=== PATIENT | male | born 1950 | race Caucasian/White ===

== ENCOUNTER → 2022-12-11 11:31 | Outpatient (CLI) | payer OTHER, SELFPAY ==
[2022-12-11 13:57] LABS: COVID19 -Nasal RAPID Negative (Negative)
== END ==
PROVIDERS: PCP Family Medicine; Visit Provider Surgery
DX: Z01.812 Encounter for preprocedural laboratory examination (principal); Z20.822 Contact with and (suspected) exposure to COVID-19
CPT/HCPCS: 87635

== ENCOUNTER → 2022-12-11 11:41 | Outpatient (CLI) | payer OTHER, SELFPAY ==
[2022-12-11 12:22] LABS: Add Manual Diff / Slide Review NO; Basophils Absolute Auto 100 /uL (0-100); Basophils Percent Auto 0.6 % (0-2); Eosinophils Absolute Auto 100 /uL (0-450); Eosinophils Percent Auto 0.9 % (2-4); Hematocrit 46.8 % (41-53); Lymphocytes Absolute Auto 2800 /uL (1100-4500); Lymphocytes Percent Auto 33.9 % (25-40); Mean Corpuscular HGB Conc 34.2 % (30-36); Mean Corpuscular Hemoglobin 30.3 PG (26-34); Mean Corpuscular Volume 88.7 fL (80-100); Monocytes Absolute Auto 500 /uL (0-900); Monocytes Percent Auto 5.8 % (3-14); Neutrophils Absolute Auto 4900 /uL (1500-7000); Neutrophils Percent Auto 58.8 % (50-75); Platelet Count 216 X10^3/uL (150-400); Red Blood Cell Count 5.28 X10^6/uL (4.5-5.9); White Blood Cell Count 8.3 X10^3/uL (4.5-11.0)
[2022-12-11 12:32] LABS: Alanine Aminotransferase 16 IU/L (<50); Albumin 4.6 g/dL (3.5-5.0); Albumin Globulin Ratio 1.4 (1.0-2.8); Alkaline Phosphatase 73 U/L (38-126); Aspartate Aminotransferase 25 IU/L (17-59); BUN Creatinine Ratio 24.5 (6-22); Bilirubin Total 0.7 mg/dL (0.2-1.3); Blood Urea Nitrogen 26 mg/dL (9-20); Calcium 9.5 mg/dL (8.4-10.2); Carbon Dioxide 28 mmol/L (22-32); Chloride 105 mmol/L (98-107); Estimated Glomerular Filt Rate > 60 mL/min (>60); Globulin 3.3 g/dL (1.7-4.1); Glucose 116 mg/dL (80-110); HEMOLYSIS < 15 (0-50); Potassium 4.5 mmol/L (3.4-5.1); Sodium 143 mmol/L (137-145); Total Protein 7.9 g/dL (6.3-8.2)
== END ==
PROVIDERS: PCP Family Medicine; Referring Provider Surgery; Visit Provider Surgery
DX: Z01.812 Encounter for preprocedural laboratory examination (principal); K80.20 Calculus of gallbladder without cholecystitis without obstruction; Z20.822 Contact with and (suspected) exposure to COVID-19
CPT/HCPCS: 36415; 80053; 85025; 87635; C9803

== ENCOUNTER 2022-12-12 06:38 | Day surgery (SDC) | payer OTHER, SELFPAY ==
[2022-12-07 10:42] VITALS: BMI 24.3
[2022-12-12] VITALS (9 sets, daily range): BP systolic 156–165; BP diastolic 80–95; PULSE 77–97; RESP 10–18; TEMP 36.2–36.3; O2SAT 94–100; BMI 24.9
--- NOTE | 2022-12-12 | PATH_ITS ---
[facility] Accession Number: [id number] No. of containers..01 Tissue . 01 Material submitted: . gallbladder - GALLBLADDER . 01 Diagnosis: Gallbladder, Cholecystectomy: Cholelithiasis with chronic cholecystitis, erosions, metaplasias and reactive atypia. Negative for dysplasia or malignancy. Cystic duct margin negative for epithelial atypia. MRV 12/15/2022 1517 Local . 01 Comment: As part of routine clinical quality assurance associate, Dr. Bazzi has reviewed this case and agrees there is no evidence of dysplasia or malignancy. . . 01 Electronically signed: . Francisco Person MD, PhD, Pathologist NPI- [id number] . 01 Gross description: . The specimen is received in formalin labeled with the patient's name, , and gallbladder, and consists of a previously disrupted gallbladder measuring 13.2 x 5.2 x 3.0 cm. The serosa is corey, smooth and congested and hepatic surface is roughened and significant for a full thickness defect measuring 3.5 cm in greatest dimension. The cystic duct is received closed with a clamp, is inked blue, and no pericystic lymph node is identified. The lumen contains no identifiable bile and three corey to brown cylindrical calculi are found within the container measuring up to 2.7 cm in greatest dimension. The mucosa is corey, trabecular, and has an area of nodularity measuring 6.9 x 3.5 cm, and the serosa and hepatic surface adjacent to this area is inked black. Also within this area are corey, flat plaques possibly consistent with cholesterol deposits. No additional lesions are identified and the awan average 0.2 cm thick. Metal Reed [employer]er sections to include the cystic duct margin, full thickness sections, and nodular area are submitted in cassettes A1-A2 (nodular area in A2). ([id number]) Additional sections are submitted in cassettes A3-A9. ([id number]) /RAINER 12/14/2022 1323 Local . 01 Pathologist provided ICD-10: K80.60 . 01 CPT . 269526 Specimen Comment: A courtesy copy of this report has been sent to [phone] Performed at: 01 [facility] [address] [place] [address], [place], [place] [id number] MD Burak Licea MD Phone: [phone]
[2022-12-12] MEDS: LACTATED RINGERS 1,000 ML 42 ML IV ×2 (07:18→09:20)
--- NOTE | 2022-12-12 07:56 | PM.PREOP ---
Pre-operative Note COVID-19 COVID-19 status: Negative Result date/Date tested (Pos, Neg/Pending): 12/11/22 Interval Note History & Physical reviewed/Exam performed by Physician: Yes Changes to H&P: Yes H&P completed within 30 days and has changed as indicated here:: All labs were normal so we will perform a cholangiogram only if there is abnormal anatomy ASA Class (for procedural sedation): II
[2022-12-12] MEDS: CEFAZOLIN 2 GM/100 ML PREMIX 100 ML IV (08:18)
--- NOTE | 2022-12-12 08:47 | SUR.OPER ---
Supine on padded OR bed, head on pillow, safety belt at thigh Bilateral arms secured on padded arm board <90 degrees abduction. Legs uncrossed. Padded footboard in place. Tape over blanket to secure lower legs. Gel pad under bilateral heels.
[2022-12-12] MEDS: BUPIVACAINE 0.5% W/ EPI (PF) 30 ML VIAL INJ (08:51)
--- NOTE | 2022-12-12 10:07 | P.OP_ITS ---
Operative Date/Time/Diagnoses Date of procedure: 12/12/22 Time of procedure: 10:07 Pre-op diagnosis: Gallstones Post-op diagnosis: same Procedure & Clinicians Procedure: Laparoscopic cholecystectomy Same procedure as scheduled: Yes Surgeon: Prashant Smith Anesthesia Type: General Operative Notes Procedure in detail: The patient was given preoperative antibiotic. The patient was brought to the operating room, placed on the table in the supine position. General endo tracheal anesthesia was induced. The abdomen was prepped and draped. A time- out was performed. We made a 1 cm infraumbilical incision. We dissected down to the base of the umbilical stalk using cautery. We grasped the umbilical stalk with a Leida clamp to elevate the abdominal wall. We scored the fascia in the midline with cautery across 1 cm. We pierced the peritoneum with a Peon clamp. The Fletcher port was placed and the abdomen was insufflated to 15 mmHg. A 5 mm 30 degree laparoscopic was inserted. There was no evidence of any injury from the entry. Next, we placed 5 mm ports in the subxiphoid position and right upper quadrant at the midclavicular line and anterior axillary line. Patient was then positioned in reverse Trendelenburg and the table was tilted to the left. The gallbladder was notably enlarged and tense and was decompressed with a large bore needle. The gallbladder contents were clear suggesting hydrops. Once the gallbladder was sufficiently decompressed we were then able to grab the gallbladder at the dome and retracted it cephalad. We then dissected the cystic structures with a combination of hook cautery and blunt dissection. We obtained a critical view. We placed clips on the cystic duct and 2 branches of the artery and divided the cystic duct and branches of the artery sharply between the clips. The gallbladder was then dissected off the liver and placed in a specimen retrieval bag. We irrigated the right upper quadrant and all the aspirate returned clear. Complete hemostasis was observed. We then removed the 5 mm ports under direct vision we removed the Fletcher port. Due to the large size of the stones we had to extend the fascial incision to about 3 cm to extract the specimen. We then injected some local into the fascia and closed the fascia with 2 interrupted 0 Vicryl sutures and 3 0 Ethibond sutures. The skin incisions were closed with 4-0 Monocryl and Steri-Strips were applied. Band-Aids were applied over the Steri-Strips. EBL: 30 mL Specimen: Gallbladder Post-operative Condition: stable Disposition: PACU
[2022-12-12] MEDS: ONDANSETRON 4 MG/2 ML INJ IV (11:29)
--- NOTE | 2022-12-12 12:02 | SUR.PHASEII ---
1145: Pt A&Ox4, denies any distressed and ready to discharge home. Discharge instructions reviewed with patient and spouse with time allowed for questions. Pt voided, IV DC'd intact, dressing C/D/I, abdomen soft. Pt left unit via w/c to ER entrance and transferred independently to vehicle. Left pt in care of spouse.
== END 2022-12-12 11:50 | disposition home or self-care (01) ==
PROVIDERS: PCP Family Medicine; Referring Provider Surgery; Visit Provider Surgery
PROC: 0FT44ZZ Resection of Gallbladder, Percutaneous Endoscopic Approach (ICD-10-PCS; CPT 47562; principal; 2022-12-12 07:45)
DX: K80.10 Calculus of gallbladder with chronic cholecystitis without obstruction (principal); I10 Essential (primary) hypertension; E11.9 Type 2 diabetes mellitus without complications; Z79.84 Long term (current) use of oral hypoglycemic drugs
CPT/HCPCS: 47562; J0330; J0690; J1170; J1885; J2405; J2704; J3010

== ENCOUNTER 2025-09-29 13:52 | Day surgery (SDC) | payer MEDICARE, SELFPAY ==
--- NOTE | 2025-09-29 | PATH_ITS ---
[facility] Accession Number: [id number] No. of containers..02 Tissue . 01 Material submitted: . PART A: stomach - ANTRUM PART B: esophagus - ESOPHAGUS . 01 Diagnosis: Part A: ANTRUM: Gastric mucosa with mild chronic inflammation. No Helicobacter organisms identified. No intestinal metaplasia, dysplasia, or malignancy identified. . Part B: ESOPHAGUS: Squamocolumnar junctional mucosa with mild chronic inflammation and focal goblet cell metaplasia. No dysplasia identified. See comment. . 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 Correlation with the endoscopic appearance is recommended for further evaluation. [facility] 10/08/20251755 Local . 01 Electronically signed: . Burak Licea MD, Pathologist NPI- [id number] . 01 Gross description: . A. Received in formalin with two patient identifiers, and antrum are two, 0.2-0.3 cm, corey tissue fragments, entirely submitted in A1. . B. Received in formalin with two patient identifiers, and esophagus are four, 0.2-0.3 cm, corey tissue fragments, entirely submitted in B1. ([id number]) /MRV 10/08/20251755 Local . 01 Microscopic: . Part A: ANTRUM: An immunohistochemical stain was performed to evaluate for Helicobacter organisms and is negative. The control stains appropriately. * This test was developed and the performance characteristics were validated by [facility]. It has not been cleared or approved by the Food and Drug Administration. . 01 Pathologist provided ICD-10: K22.70, K29.50 . 01 CPT . 054436, 506427, E59408 Specimen Comment: A courtesy copy of this report has been sent to [facility] Performed at: 01 [facility] [place] [address] [address], [place], [place] [id number] MD Burak Licea MD Phone: [phone]
--- NOTE | 2025-09-29 06:28 | PM.HP.IH.1 ---
History of Present Illness History of Present Illness Date Patient Seen: 09/29/25 Chief complaint: SDC Narrative: Patient presents for EGD today. [facility] Medical History Anesthesia complication BCC (basal cell carcinoma) COVID-19 virus infection (04/2022) GERD (gastroesophageal reflux disease) Hypertension Neuropathy Renal cyst Renal cysts, acquired, bilateral Type 2 diabetes mellitus Surgical History History of herniorrhaphy History of surgery Hx of tonsillectomy Social History household members: spouse alcohol intake: current Meds Home Medications and Allergies Home Medications ?Medication ?Instructions ?Recorded ?Confirmed ?Type metformin 500 mg tablet 500 mg PO BID 11/22/22 08/24/25 History aspirin 81 mg tablet 81 mg PO DAILY 08/24/25 08/24/25 History flash glucose sensor (FreeStyle #1 ea 08/24/25 08/24/25 History Nova 14 Day Sensor kit) rosuvastatin 10 mg tablet 10 mg PO ONCE PM 08/24/25 08/24/25 History sodium,potassium,mag sulfates 17.5 See Rx Instructions PO .COMPLEX 09/15/25 Rx gram-3.13 gram-1.6 gram oral soln #354 mL (Suprep Bowel Prep Kit) Allergies Allergy/AdvReac Type Severity Reaction Status Date / Time No Known Drug Allergies Allergy Verified 08/24/25 10:27 Exam Narrative Exam Narrative: Const General: healthy appearing, comfortable and no acute distress Orientation: alert and oriented x3 HENMT Ears: hearing grossly normal bilaterally Eyes Visual Leung: normal visual leung by confrontation Conjunctivae: conjunctivae normal Sclera: sclerae normal EOM: EOM intact bilaterally Resp Effort & Inspection: normal respiratory effort and able to speak in complete sentences Cardio Rate: regular rate GI Palpation: soft (NT) Extrem General: no pedal edema and no calf tenderness Assessment & Plan Assessment and plan (1) Chronic hiccoughs: Status: Acute Plan Plan EGD with biopsy as next step. If no contributing factors found at EGD, consider structural imaging such as MRI brain, CT CAP. Consider medication ( baclofen, gabapentin, reglan, chlorpromazine, etc) management if nothing structural found. The risks, benefits and options regarding the procedure were explained to the patient in detail. Risk discussion included but not limited to: bleeding, perforation, missed lesion. The patient was encouraged to ask questions and they were answered to their satisfaction. The patient understands and is agreeable to proceed. Time-Based Coding :: [TOTAL MINUTES] spent with patient and on the chart (including review of chart, obtaining history, exam, reviewing outside data, placing orders, documenting exam and treatment plan, and counseling patient) on [DATE]. [employer] Position Clerk Document charge(s): Yes Charge Codes Inpatient/observation care including admit and discharge same day: [id number]
[2025-09-29 14:12] VITALS: BP 158/96; PULSE 99; RESP 18; TEMP 36.4; O2SAT 98
[2025-09-29] MEDS: LACTATED RINGERS 1,000 ML 42 ML IV (14:22)
--- NOTE | 2025-09-29 14:57 | P.OP.EGD&C_ITS ---
Operative Date/Time/Diagnoses Date of procedure: 09/29/25 Time of procedure: 15:37 Pre-op diagnosis: GERD, chronic hiccoughs, screening colon Post-op diagnosis: other (gastritis with small clots evidence of recent bleeding, 4cm hiatal hernia, LA Grade B esophagitis) Procedure & Clinicians Study performed: EGD, colonoscopy with biopsy Same procedure(s) as scheduled: Yes Indications: 75yo M, chronic hiccoughs, GERD, screening colon Surgeon: Abdi Albrecht Anesthesia Type: MAC +/- Procedure Notes SCOAP/Timeout: Performed Procedure in detail: EGD Informed consent was obtained. The procedure, its risks, benefits, and alternatives were discussed. Patient understood and agreed to proceed. The patient was placed in the left lateral decubitus position with head elevated. Sedation given per anesthesia. The video endoscope was inserted into the oropharynx and guided under direct vision into the esophagus, stomach, and duodenum which were carefully examined. The scope was retroflexed to examine the hiatus and gastroesophageal junction. Antral biopsies were obtained for Helicobacter pylori. The patient tolerated the procedure very well. There were no apparent complications. Significant EGD findings: Z-line noted at: 36cm LA Grade B esophagitis, biopsies taken, no mass or stricture 4cm hiatal hernia Moderate gastritis in antrum and body of stomach, small clots indicate recent bleeding, possible aspirin effect, biopsies taken Normal duodenum No ulcer in esophagus, stomach or duodenum Colonoscopy Patient placed in left lateral recumbent position. Time out was performed. Procedural sedation was administered by anesthesia. Examination began with a thorough inspection of the perianal area. There was no evidence of fissures, fistulae, external hemorrhoids or cutaneous malignancy. The colonoscope was then placed into the rectum and the lumen was insufflated with carbon dioxide. The scope was carefully advanced forward. Ultimately the cecum was intubated and confirmed by identification of the ileocecal valve, the appendiceal orifice and the confluence of the taenia. The scope was then slowly withdrawn examining the colon thoroughly in all directions. In the rectum, retroflexion of the scope was performed for inspection of the distal rectum and anal canal. ?Significant colonoscopy findings: ?1. Quality of the preparation-good, [place] 2-3, improved with irrigation/suction ?2. Sigmoid diverticulosis 3. No colon polyps, mass, stricture, ulceration 4. Internal hemorrhoidal columns, moderate size Scope withdrawal time: 7 minutes Findings: diverticulosis, gastritis, hiatal hernia, internal hemorrhoids and other findings (esophagitis) Specimen(s): other (biopsies) Estimated Blood Loss: 5 Complications: none Impression: LA Grade B esophagitis 4cm hiatal hernia Moderate gastritis with small clots, evidence of bleeding Sigmoid diverticulosis Internal hemorrhoids Post-procedure Recommendations: Will call with biopsy results Plan for aftercare: PACU then home Follow up: as needed Disposition: PACU
[2025-09-29 15:34] VITALS: BP 113/66; PULSE 81; RESP 16; TEMP 36.3; O2SAT 97
[2025-09-29 15:39] VITALS: BP 112/65; PULSE 80; RESP 16; O2SAT 97
[2025-09-29 15:44] VITALS: BP 111/66; PULSE 78; RESP 16; O2SAT 97
[2025-09-29 15:49] VITALS: BP 122/72; PULSE 79; RESP 16; TEMP 36.3; O2SAT 99
== END 2025-09-29 16:10 | disposition home or self-care (01) ==
PROVIDERS: Visit Provider Surgery
PROC: 0DJ08ZZ Inspection of Upper Intestinal Tract, Via Natural or Artificial Opening Endoscopic (ICD-10-PCS; CPT 43239; principal; 2025-09-29 14:45)
PROC: 0DJD8ZZ Inspection of Lower Intestinal Tract, Via Natural or Artificial Opening Endoscopic (ICD-10-PCS; CPT 45378; 2025-09-29 14:45)
DX: Z12.11 Encounter for screening for malignant neoplasm of colon (principal); K21.00 Gastro-esophageal reflux disease with esophagitis, without bleeding; K29.50 Unspecified chronic gastritis without bleeding; K44.9 Diaphragmatic hernia without obstruction or gangrene; R06.6 Hiccough; K64.8 Other hemorrhoids; K57.30 Diverticulosis of large intestine without perforation or abscess without bleeding
CPT/HCPCS: 43239; G0121; J2704; J7120